=== PATIENT | female | born 1995 | race Caucasian/White ===

== ENCOUNTER → 2024-07-09 08:24 | Outpatient (REF) | payer BC, SELFPAY | LOC: HWRAD 08:24 | PROVIDERS: ATTENDING PHYSICIAN Obstetrics & Gynecology Gynecology; FAMILY PHYSICIAN Nurse Practitioner Family | DX: R10.2 Pelvic and perineal pain (principal) | CPT/HCPCS: 76830; 76856 ==

== ENCOUNTER → 2024-10-10 08:22 | Outpatient (REF) | payer BC, SELFPAY | LOC: HWRAD 08:22 | PROVIDERS: ATTENDING PHYSICIAN Obstetrics & Gynecology Gynecology; FAMILY PHYSICIAN Nurse Practitioner Family | DX: N83.202 Unspecified ovarian cyst, left side (principal) | CPT/HCPCS: 76830; 76856 ==

== ENCOUNTER 2024-11-22 16:11 | Emergency (ER) | payer OTHER, SELFPAY ==
[2024-11-22 16:15] VITALS: BP 131/80
--- NOTE | 2024-11-22 17:28 | ED.GENMED ---
History of Present Illness
General
Chief Complaint: Headache
Source: patient
Exam Limitations: none
Time Seen by Provider: 11/22/24 17:05
Nursing documentation reviewed up to this point in time: agreed with
History of Present Illness
History of Present Illness:
Patient is a 29-year-old female past with history of migraines, icepick headaches',' presents to the ER for evaluation of a headache. She has had a headache off and on for the past few days however today she woke up with a headache and it was
worse. Has been persistent. She reports her eyes feel heavy she is slightly light sensitive. This feels slightly different than her normal migraines. She currently complains of pain 8 out of 10 to her left forehead and behind her left eye. She
denies any recent trauma. She is not on blood thinners.
LMP Sunday, 5 d ago. No chiropractor manipulation no complaints of numbness tingling weakness to extremities. no vision problems .
Past History
Past History
ED Past Medical History: Asthma and Other (migraines)
ED Past Surgical History: Other (wisdom teeth)
Social History
Tobacco: Non-smoker
Alcohol: Occasional
Personal: Single
Living: with family
Phy Exam
General Physical Exam
General Presentation: no apparent distress
General age: appears stated age
General Skin: warm and dry
General Habitus: normal
General Mental: alert
General Hydration: appears well hydrated
Neurological Exam
Neurological Exam: alert, oriented x3, no motor deficits and no sensory deficits
Musculoskeletal Exam
Musculoskeletal Exam: full ROM
Skin Exam
Skin Exam: normal color and warm/dry
Psychiatric Exam
Psychiatric Exam: normal mood/affect
Course
Orders/Labs/Results
Orders:
Orders
11/22/24 17:31
CT Head W/o Iv Contrast Urgent
Comment:
Reason For Exam: headache
Metoclopramide [Reglan] 10 mg IV NOW STA
11/22/24 17:32
Diphenhydramine [Benadryl] 25 mg IV NOW STA
11/22/24 17:33
0.9% Sodium Chloride 1000 ml [Nss] 1,000 ml IV BOLUS
11/22/24 20:05
Ketorolac [Toradol] 15 mg IV NOW STA
Vital Signs
Initial and Last Documented VS:
Initial Vital Signs
Temp Pulse Resp BP Pulse Ox
98.3 F 103 18 131/80 100
11/22/24 16:15 11/22/24 16:15 11/22/24 16:15 11/22/24 16:15 11/22/24 16:15
Last Documented Vital Signs
Temp Pulse Resp BP Pulse Ox
98.3 F 75 16 117/81 100
11/22/24 16:15 11/22/24 19:59 11/22/24 19:59 11/22/24 19:57 11/22/24 17:30
MDM/Problems Addressed
Differential Diagnosis Includes:
Not limited to headache, migraine headache
MDM/Problems Addressed:
Patient with a normal neurologic exam history of migraines presents with headache. This headache was slightly different than her regular migraines however no concerning symptoms. Patient is no acute distress received Reglan Benadryl Toradol
feeling improved. Feels well up to go home. CAT scan negative. No concerning symptoms.
Will discharge with outpatient follow-up family doctor
Chronic conditions affecting care:
migaines
*Radiology
Radiology exam reviewed: radiology read reviewed
*Pulse Oximetry
SaO2: 100
Oxygen Mode of Delivery: Room air
Patient hypoxic: no
*Critical Care Note
Total Time (30-74mins, 75-104mins- exclusive of procedures): Not Applicable
ED Attending Note
-
Portions of this chart may have been created with voice recognition software.� Occasional wrong word or��sound alike� substitutions may have occurred due to the inherent limitations of voice recognition software.
Discharge Plan
Departure
Patient Disposition: Home (Routine Discharge)
Date of Disposition: 11/22/24
Time of Disposition: 22:17
Patient with high blood pressure during this ER visit?: Yes
Condition: Fair
Covid-19: Not Applicable
Discharge Problem:
Headache
Instructions: Headache, Adult (DC), BLOOD PRESSURE
Referrals:
Melanie Darden CRNP [Family Provider]
Activity Restrictions/Additional Instructions:
Follow-up with your family doctor in the next several days. Return if any worsening of symptoms
Interventions
Interventions:
*Risk Screen - Suicide Last Done: 11/22/24 16:15
*General Assessment Last Done: 11/22/24 16:15
*Neglect/Abuse Screening Last Done: 11/22/24 16:15
*ED- Fall Risk Assessment Last Done: 11/22/24 18:21
*ED COVID-19 Vaccine History Last Done: 11/22/24 18:21
*ED Influenza Vaccine History Last Done: 11/22/24 18:21
ED- Neurological Assessment Last Done: 11/22/24 18:20
Discharge Date and Time
Print Language: [email or web address]
[2024-11-22] MEDS: NSS 1000 IV (18:27)
[2024-11-22] MEDS: BENADRYL 25 MG IV (18:29)
[2024-11-22] MEDS: REGLAN 10 MG IV (18:29)
[2024-11-22 19:57] VITALS: BP 117/81
[2024-11-22] MEDS: TORADOL 15 MG IV (20:10)
== END 2024-11-22 22:39 | disposition home or self-care (01) ==
LOC: EMR 16:11
PROVIDERS: EMERGENCY PHYSICIAN Emergency Medicine; FAMILY PHYSICIAN Nurse Practitioner Family
DX: R51.9 Headache, unspecified (principal); J45.909 Unspecified asthma, uncomplicated
CPT/HCPCS: 96374; 96375; 96361; 99284; 70450